=== PATIENT | male | born 1960 | race African-American/Black ===

== ENCOUNTER 2017-07-02 11:35 | Observation (INO) | payer OTHER, MEDICARE ==
--- NOTE | 2017-07-02 15:32 | ED ---
Psychiatric Complaint - HPI Summary HPI Summary: Pt sent here for hypertensive urgency and mental health evaluation. Sent by [facility]. He reports he's had HTN for "years" - takes lisinopril daily - was recently increased by [facility]. 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 He reports he has schizophrenia and received haldol 70mg IM monthly. He last received this at [facility] on 06/29/2017 (pt reports this and confirmed by nursing at [facility]). [facility] providers have been reluctant to rx this as he does not have a local psychiatrist - have all but begged him to consult [facility] which he declines. They have explained they will not provide this medication next time - needs to establish with MH in the community for psychiatry evaluation. He states he will go Sunday to [facility] for an initial intake. He is also speaking with quite quickly with pressured speech and jumps from topic to topic but they are somewhat linear. When asked about his HTN, he denies headache, blurred vision, chest pain, SOB, fatigue. He does have some swelling in his ankles but admits he's stressed more since here and not exercising like he usually does. Also eating poorly - more processed/canned foods than usual. He reports his BP has been 200's over 100's before many times in the past. He's not concerned. Further reports he was newly diagnosed with diabetes. No meds at this time. H/o increased urination last week and had labs with [facility] recently to dx DM. - History Of Current Complaint Chief Complaint: EDHypertension Time Seen by Provider: 07/02/17 13:55 Hx Obtained From: Patient - Allergies/Home Medications Allergies/Adverse Reactions: Allergies Allergy/AdvReac Type Severity Reaction Status Date / Time No Known Allergies Allergy Verified 07/02/17 11:44 Home Medications: Home Medications Aspirin [Aspirin 81 MG TAB] 81 mg PO DAILY 07/03/17 [History Confirmed 07/03/17] Benztropine TAB* [Cogentin TAB*] 1 mg PO BID 07/03/17 [History Confirmed ] Haloperidol Decanoate (Bulk) [Haloperidol Decanoate] 70 mg IM SEE INSTRUCTIONS 07/03/17 [History Confirmed 07/03/17] Lisinopril 10 mg PO DAILY 07/03/17 [History Confirmed 07/03/17] Multiple Vitamin [Multi Vitamin] 1 tab PO DAILY 07/03/17 [History Confirmed ] Omeprazole [Prilosec] 20 mg PO DAILY 07/03/17 [History Confirmed 07/03/17] PMH/Surg Hx/FS Hx/Imm Hx Previously Healthy: Yes Endocrine/Hematology History: Reports: Hx Diabetes - new dx Denies: Hx Anticoagulant Therapy, Hx Blood Disorders, Hx Thyroid Disease, Autoimmune Disease Cardiovascular History: Reports: Hx Hypertension - lisinopril - poorly controlled Denies: Hx Myocardial Infarction GI History: Reports: Hx Gastroesophageal Reflux Disease - 2ndry to chewing tobacco History: Denies: Hx Acute Renal Failure, Hx Chronic Renal Failure Infectious Disease History: No Infectious Disease History: Denies: Traveled Outside the [place] in Last 30 Days - Family History Known Family History: Positive: Other - CVA - sister, in 50's - Social History Occupation: Student - grad student [employer] Lives: Alone Alcohol Use: Occasionally Hx Substance Use: No Substance Use Type: Reports: None Hx Tobacco Use: Yes Smoking Status (MU): Never Smoked Tobacco Type: Smokeless Tobacco - quit years ago Review of Systems Constitutional: Negative Negative: Fever, Chills, Fatigue Eyes: Negative Negative: Photophobia, Blurred Vision, Diplopia ENT: Negative Negative: Dental Pain, Sore Throat Cardiovascular: Negative Negative: Palpitations, Chest Pain Respiratory: Negative Negative: Shortness Of Breath, Cough Gastrointestinal: Negative Negative: Abdominal Pain, Vomiting, Diarrhea, Nausea Positive: see HPI Musculoskeletal: Negative Skin: Negative Neurological: Negative Negative: Headache, Weakness, Paresthesia, Numbness, Syncope, Slurred Speech Psychological: Other - see HPI All Other Systems Reviewed And Are Negative: Yes Physical Exam Triage Information Reviewed: Yes Vital Signs On Initial Exam: Initial Vitals Temp Pulse Resp BP Pulse Ox 98.1 F 80 17 180/100 98 07/02/17 11:42 07/02/17 11:42 07/02/17 11:42 07/02/17 11:42 07/02/17 11:42 Vital Signs Reviewed: Yes Appearance: Positive: Well-Appearing, No Pain Distress, Well-Nourished Skin: Positive: Warm, Dry - multiple scabbed lesions over LE's - none appear acutely infected Head/Face: Positive: Normal Head/Face Inspection Eyes: Positive: Normal, EOMI, Conjunctiva Clear ENT: Positive: Hearing grossly normal Respiratory/Lung Sounds: Positive: Clear to Auscultation, Breath Sounds Present. Negative: Rales, Rhonchi, Wheezes Cardiovascular: Positive: RRR, Pulses are Symmetrical in both Upper and Lower Extremities, Leg Edema Left - +1 pitting in LLE - NTTP, Leg Edema Right, S1, S2. Negative: Murmur, Rub Abdomen Description: Positive: Nontender, Soft Bowel Sounds: Positive: Present Musculoskeletal: Positive: Normal, Strength/ROM Intact Neurological: Positive: Normal, Sensory/Motor Intact, Alert, Oriented to Person Place, Time, CN Intact II-III Psychiatric: Positive: Other - manic, somewhat unorganized thoughts, pleasant, calm and joking at times - denies SI/HI - [place] Coma Scale Coma Scale Total: 15 Diagnostics - Vital Signs Vital Signs Temp Pulse Resp BP Pulse Ox 07/02/17 11:42 98.1 F 80 17 180/100 98 - Laboratory Result Diagrams: 07/02/17 16:23 07/02/17 16:23 Lab Statement: Any lab studies that have been ordered have been reviewed, and results considered in the medical decision making process. Course/Dx - Course Course Of Treatment: Pt here intially via cab for unknown purpose - he reported to get DM meds. Nursing note said HTN. And CC said urinary frequency. Communication from [facility] indicated HTN urgency + request for MH evaluation for multiple disruptions on campus (not just today), odd behavior - confirmed by phone call. No clear explanation if pt is a danger to himself or others. [facility] reports sending pt over in a cab with instructions to be seen at ED. Pt presented as an educated adult with low level of sandra upon initial eval but after reviewing paperwork from [facility], it appeared he was underdosed w/ haldol. Also his BP was 180/100 and asx. Plan #1 was to bring him to therapeutic dose with haldol (from 50mg IM to 70mg by giving 20mg here today) and starting him on anti-hypertensive therapy to be followed by [facility] (they agreed to provide his continuity here). Pt declined BP meds. Labs returned and revealed elevated LFT's - pt reports fatty liver but unsure of LFT levels. [facility] called to update me that pt's haldol was in fact equivalent to 70mg so additional 20mg was not administered here. It was also decided he is most likely at is usual dose and not well controlled from a mental health standpoint. This could be from need for change in medcations and/or hypertensive urgency causing mood change (although BP not urgent at this time and pt reports he lives here or higher for years). Unfortunately, pt was moved out of his room for a more acutely ill pt and when finally moved back and vitals rechecked, his BP advanced to 182/123. He remained asx however explained he was now in a state of HTN urgency requiring medication to lower level to prevent damage to organs and prevent stroke, [place]. He was initally willing to stay for MH consult as it was discussed haldol may not be appropriate medication for mood and for his liver and after reviewing his BP now realized this could be exacerbation from HTN urgency. When explained this to pt, he states he doesn't care about his BP, wants to go home. No longer wants to stay for MH eval - will go to [facility] Sunday. He is concerned about getting in touch with his - offered him a phone to call which he declined. Concerned about studying for classes - explained he would have a medical excuse to address his abscence and the importance of tx and evaluation tonight. Explained he does not appear to be making sound decisions and denies SI/HI - suspect poor insight is a result of poorly controlled MH (no hallucinations but is manic and tangential) issues along w/ HTN. After further discussion by nursing, pt agrees to take PO B52 and receive hydralazine via IV as well as ECG which is NSR. He was offered food multiple times throughout the day but declined - he is now expressing he's hungry - food ordered. Discussed with Keith when BP became urgent state - advised meds and cardiac testing (trop, ECG). Pt has an elevated troponin 0.05 (no baseline for comparison). He also has NSR w/ LVH - report concerned for ST elevations but final read by Dr. Otero - no ST elevations. Pt takes ASA daily so was not ordered today. His pulse ox is above 95% consistently and pt is w/o pain so no oxygen ordered. Dr. Thomas advised involuntary admission - [facility] accepted pt. Spoke w/ SWATI Cabrera, pt to be evaluated once stable. No SI/HI nor reported auditory or visual hallucinations currently. - Differential Dx/Clinical Impression Provider Diagnosis: Hypertensive urgency, Sandra, Schizophrenia Discharge - Discharge Plan Condition: Stable Disposition: ADMITTED TO [facility]
[2017-07-02 16:56] LABS: ALT 64 U/L (7-52); AST 55 U/L (13-39); Albumin 4.2 g/dL (3.2-5.2); Alkaline Phosphatase 91 U/L (34-104); Anion Gap 7 mmol/L (2-11); BUN/Creatinine Ratio 7.8 (8-20); Blood Urea Nitrogen 8 mg/dL (6-24); CO2 Carbon Dioxide 29 mmol/L (22-32); Chloride 102 mmol/L (101-111); EGFR African American 97.9 (>60); EGFR Non-African American 76.1 (>60); Globulin 4.1 g/dL (2-4); Glucose 117 mg/dL (70-100); Potassium 3.8 mmol/L (3.5-5.0); Sodium 138 mmol/L (133-145); Total Protein 8.3 g/dL (6.4-8.9)
[2017-07-02 16:58] LABS: Benzodiazepine Urine Screen None Detected (None Detect)
[2017-07-02 17:05] LABS: Urine Bacteria Absent (Absent); Urine Bilirubin Negative (Negative); Urine Glucose Negative (Negative); Urine Nitrite Negative (Negative)
[2017-07-02 17:07] LABS: Acetaminophen < 15 mcg/mL; Alcohol < 10 mg/dL (<10); Salicylate < 2.50 mg/dL (<30)
[2017-07-02 17:08] LABS: Hematocrit 45 % (42-52); Hemoglobin 14.8 g/dl (14.0-18.0); Mean Corpuscular HGB Conc 33 g/dl (31-36); Mean Corpuscular Hemoglobin 30 pg (27-31); Mean Corpuscular Volume 90 fL (80-94); Mean Platelet Volume 8 um3 (7.4-10.4); Red Blood Count 4.93 10^6/ul (4.0-5.4); Red Cell Distribution Width 14 % (10.5-15); White Blood Count 5.3 10^3/ul (3.5-10.8)
[2017-07-02 17:17] LABS: TSH (Thyroid Stimulating Horm) 2.93 mcIU/mL (0.34-5.60)
[2017-07-02] MEDS ORDERED: hydrALAZINE IV* 20 MG/ML VIAL IV SLOW PU ONE (18:02)
[2017-07-02 18:30] LABS: Troponin I 0.05 ng/mL (<0.04)
[2017-07-02] MEDS ORDERED: Haloperidol TAB* 5 MG PO ONE (18:49)
[2017-07-02] MEDS ORDERED: diPHENhydraMINE PO* 50 MG PO ONE (18:49)
[2017-07-02] MEDS ORDERED: LORazepam TAB(*) 1 MG PO ONE (18:49)
--- NOTE | 2017-07-02 20:19 | ED ---
Progress - Progress Note Progress Note: At change of shift Dr Parker and Julieth Brandt had been managing this patient for several hours. At 1845 I was informed of the patient who was in a manic, schizophrenic state with very high BP and elevated troponin. Based on the clinical evidence of elevated BP, high troponin and the patient's psychiatric state of schizophrenia and sandra, the patient cannot be safely discharged to home, and He is not in a state to make medical decisions for himself. The hospitalists are admitting and Mental health is seeing as well for further treatment to be sure he is stable. At this time He will not be allowed to sign AMA due to the complex medical and psychiatric picture. Course/Dx - Course Course Of Treatment: Pt here intially via cab for unknown purpose - he reported to get DM meds. Nursing note said HTN. And CC said urinary frequency. Communication from [facility] indicated HTN urgency + request for MH evaluation for disruptions on campus, odd behavior - confirmed by phone call. Pt did present as low level of manic upon initial eval but after reviewing paperwork from [facility], it appeared he was underdosed w/ haldol. Also his BP was 180/100 and asx. Plan #1 was to bring him to therapeutic dose with haldol (from 50mg IM to 70mg by giving 20mg here today) and starting him on anti-hypertensive therapy to be followed by [facility] (they agreed to provide his continuity here). Labs returned and revealed elevated LFT's - pt reports fatty liver but unsure of LFT levels. [facility] called to update me that pt's haldol was in fact equivalent to 70mg so additional 20mg was not administered here. It was also decided he is most likely at is usual dose and not well controlled from a mental health standpoint. This could be from need for change in medcations and/ or hypertensive urgency causing mood change (although BP not urgent at this time ). Unfortunately, pt was moved out of his room for a more acutely ill pt and when finally moved back and vitals rechecked, his BP advanced to 182/123. He remained asx however explained he was now is a state of HTN urgency requiring medication to lower level to prevent damage to organs and prevent stroke, [place]. He was initally willing to stay for MH consult as it was discussed haldol may not be appropriate medication for mood and for his liver and after reviewing his BP now realized this could be exacerbation from HTN urgency. When explained this to pt, he states he doesn't care about his BP, wants to go home. No longer wants to stay for eval - will go to [facility] Sunday. He is concerned about getting in touch with his - offered him a phone to call which he declined. Concerned about studying for classes - explained he would have a medical excuse to address his abscence and the importance of tx and evaluation tonight. Explained he does not appear to be making sound decisions and denies SI/HI - suspect poor insight is a result of poorly controlled schizophrenia along w/ HTN. After further discussion by nursing, pt agrees to take PO B52 and receive hydralazine via IV as well as ECG which is NSR. He was offered food multiple times throughout the day but declined - he is now expressing he's hungry - food ordered. Discussed with Keith when BP became urgent state - advised meds and cardiac testing (trop, ECG). Pt has an elevated troponin 0.05 (no bsaeline for comparison). He also has NSR w/ LVH - report concerned for ST elevations but final read by Dr. Otero - no ST elevations. Pt takes ASA daily so was not ordered today. His pulse ox is abiove 95% consistently and pt is w/o pain so no oxygen ordered. Dr. Thomas advised admission - [facility] accepted pt. Spoke w/ Rick, SWATI, pt to be evaluated once stable. No SI/HI nor reported auditory or visual hallucinations currently. - Diagnoses Provider Diagnoses: Hypertensive urgency, Sandra, Schizophrenia
[2017-07-02] MEDS ORDERED: CMCS:Melatonin (NF) 3 MG TAB PO PRN (20:38)
[2017-07-02] MEDS ORDERED: Acetaminophen TAB* 325 MG PO PRN (20:38)
[2017-07-02] MEDS ORDERED: Morphine INJ* 2 MG/ML 1 ML SYRINGE (TWO MG - NEW SYRINGE VERSION) IV PRN (20:38)
[2017-07-02] MEDS ORDERED: Aspirin Low Dose CHEW TAB* 81 MG PO ONE (20:39)
[2017-07-02] MEDS ORDERED: Ondansetron INJ* 2 MG/ML VIAL IV PRN (20:39)
[2017-07-02] MEDS ORDERED: Haloperidol INJ IV/IM* 5 MG/ML AMP ONE (20:56)
[2017-07-02] MEDS ORDERED: Haloperidol INJ IV/IM* 5 MG/ML AMP IM ONE (20:57)
[2017-07-02] MEDS ORDERED: Ziprasidone IM INJ* 20 MG/ML VIAL IM ONE (21:02)
[2017-07-02] MEDS ORDERED: Ziprasidone IM INJ* 20 MG/ML VIAL ONE (21:03)
[2017-07-02] MEDS ORDERED: Sterile Water for Inj* 10 ML ONE (21:05)
--- NOTE | 2017-07-02 21:15 | HP ---
H&P (Free Text) History and Physical: PCP: [facility] Date/Time: 07/02/2017 CC: [id number] for schizophrenia exacerbation HPI: Mr Palacios is a 56YO male HX HTN, DM2, & paranoid schizophrenia who lives with his in [place], but came to [place] in May for 2 semesters of graduate work at [employer]. He was sent in by [facility] reportedly for uncontrolled HTN & new diagnosis of DM2, but ED charge nurse reports he was brought in 941 for manic behavior and has been determined to lack capacity. He has required 5mg haloperidol, 2mg lorazepam, & 50mg diphenhydramine in ED for agitation, but is currently awake, alert, and stating he does not want to stay. This is despite my informing him that his blood pressure has been high enough to create a small bump in his troponin, possibly indicating heart damage or potential ACS. He does not accept this stating, "I'm fine. I just want to go." He denies chest pain, SOB, palpitation, nausea, sweats, and light-headedness. He has had no cough, congestion, F/C, diarrhea, focal W/N/T, change in speech/ swallow or other issues. PMedHx paranoid schizophrenia DM2 HTN Medications Nursing to reconcile. Allergies No Known Allergies Allergy (Verified 07/02/17 11:44) PSurgHx denies SocHx: former light chew but none now, 1 alcoholic drink daily, denies recreational drugs; lives with his in [place] but is staying in [place] alone for a year starting in May for graduate work at [employer]; full code status FamHx: Mother passed in her 70s of "old age". Father passed of an uncertain cancer. Sister passed of a CVA. ROS: as above, otherwise reviewed and all were negative vitals: Vital Signs Temp 36.6 C 07/02/17 18:35 Pulse 78 07/02/17 19:15 Resp 18 07/02/17 18:58 BP 185/101 07/02/17 19:15 Pulse Ox 97 07/02/17 19:15 Intake & Output 07/01/17 07/02/17 07/02/17 23:59 11:59 23:59 Weight 121.109 kg Constitutional: NAD, normally developed, obese black male HEENM: atraumatic; sclera/conjunctiva: non-icteric/clear; hearing: clinically intact; oropharynx: clear, mucosa moist Neck: soft tissue: non-tender; thyroid: normal Pulmonary: clear to auscultation bilaterally, good aeration, no accessory muscle use CV: RR/RR, normal S1S2, no carotid bruit, no jugular venous distention, 2+ B DP/ PT, no edema Abdominal: soft, non-distended, non-tender, no rebound/guarding/rigidity, normoactive bowel sounds, no hepatosplenomegaly or masses, no costovertebral angle tenderness Musculoskeletal: general: grossly intact; gait: stable Integumental: normal appearance and texture of exposed skin Psychiatric orientation: AA&O to PPS affect: mildly anxious mood: cooperative eye contact: fair content: reliable responses: timely, tangential, perseverant regarding not staying insight: fair to poor Testing: Lab Results 07/02/17 07/02/17 07/02/17 Range/Units 16:10 16:10 16:23 WBC (3.5-10.8) 10^3/ul RBC (4.0-5.4) 10^6/ul Hgb (14.0-18.0) g/dl Hct (42-52) % MCV (80-94) fL MCH (27-31) pg MCHC (31-36) g/dl RDW (10.5-15) % Plt Count (150-450) 10^3/ul MPV (7.4-10.4) um3 Neut % (Auto) (38-83) % Lymph % (Auto) (25-47) % Swisher % (Auto) (1-9) % Eos % (Auto) (0-6) % Baso % (Auto) (0-2) % Absolute Neuts (auto) (1.5-7.7) 10^3/ul Absolute Lymphs (auto) (1.0-4.8) 10^3/ul Absolute Monos (auto) (0-0.8) 10^3/ul Absolute Eos (auto) (0-0.6) 10^3/ul Absolute Basos (auto) (0-0.2) 10^3/ul Absolute Nucleated RBC 10^3/ul Nucleated RBC % Sodium 138 (133-145) mmol/L Potassium 3.8 (3.5-5.0) mmol/L Chloride 102 (101-111) mmol/L Carbon Dioxide 29 (22-32) mmol/L Anion Gap 7 (2-11) mmol/L BUN 8 (6-24) mg/dL Creatinine 1.02 (0.67-1.17) mg/dL Est GFR ( Amer) 97.9 (>60) Est GFR (Non-Af Amer) 76.1 (>60) BUN/Creatinine Ratio 7.8 L (8-20) Glucose 117 H (70-100) mg/dL Calcium 10.0 (8.6-10.3) mg/dL Total Bilirubin 0.90 (0.2-1.0) mg/dL AST 55 H (13-39) U/L ALT 64 H (7-52) U/L Alkaline Phosphatase 91 (34-104) U/L Troponin I 0.05 H* (<0.04) ng/mL Total Protein 8.3 (6.4-8.9) g/dL Albumin 4.2 (3.2-5.2) g/dL Globulin 4.1 H (2-4) g/dL Albumin/Globulin Ratio 1.0 (1-3) TSH 2.93 (0.34-5.60) mcIU/mL Urine Color Yellow Urine Appearance Clear Urine pH 6.0 (5-9) Ur Specific Citra 1.023 (1.010-1.030) Urine Protein 2+(100 mg/dl) H (Negative) Urine Ketones Negative (Negative) Urine Blood Negative (Negative) Urine Nitrate Negative (Negative) Urine Bilirubin Negative (Negative) Urine Urobilinogen Negative (Negative) Ur Leukocyte Esterase Negative (Negative) Urine WBC (Auto) Absent (Absent) Urine RBC (Auto) Absent (Absent) Urine Bacteria Absent (Absent) Urine Glucose Negative (Negative) Urine Ascorbic Acid * H (Negative) Salicylates < 2.50 (<30) mg/dL Urine Opiates Screen None detected (None Detect) Acetaminophen < 15 mcg/mL Ur Barbiturates Screen None detected (None Detect) Ur Phencyclidine Scrn None detected (None Detect) Ur Amphetamines Screen None detected (None Detect) U Benzodiazepines Scrn None detected (None Detect) Urine Cocaine Screen None detected (None Detect) U Cannabinoids Screen None detected (None Detect) Serum Alcohol < 10 (<10) mg/dL 07/02/17 07/02/17 Range/Units 16:23 19:05 WBC 5.3 (3.5-10.8) 10^3/ul RBC 4.93 (4.0-5.4) 10^6/ul Hgb 14.8 (14.0-18.0) g/dl Hct 45 (42-52) % MCV 90 (80-94) fL MCH 30 (27-31) pg MCHC 33 (31-36) g/dl RDW 14 (10.5-15) % Plt Count 189 (150-450) 10^3/ul MPV 8 (7.4-10.4) um3 Neut % (Auto) 42.6 (38-83) % Lymph % (Auto) 47.0 (25-47) % Swisher % (Auto) 8.0 (1-9) % Eos % (Auto) 1.8 (0-6) % Baso % (Auto) 0.6 (0-2) % Absolute Neuts (auto) 2.3 (1.5-7.7) 10^3/ul Absolute Lymphs (auto) 2.5 (1.0-4.8) 10^3/ul Absolute Monos (auto) 0.4 (0-0.8) 10^3/ul Absolute Eos (auto) 0.1 (0-0.6) 10^3/ul Absolute Basos (auto) 0 (0-0.2) 10^3/ul Absolute Nucleated RBC 0.03 10^3/ul Nucleated RBC % 0.6 Sodium (133-145) mmol/L Potassium (3.5-5.0) mmol/L Chloride (101-111) mmol/L Carbon Dioxide (22-32) mmol/L Anion Gap (2-11) mmol/L BUN (6-24) mg/dL Creatinine (0.67-1.17) mg/dL Est GFR ( Amer) (>60) Est GFR (Non-Af Amer) (>60) BUN/Creatinine Ratio (8-20) Glucose (70-100) mg/dL Calcium (8.6-10.3) mg/dL Total Bilirubin (0.2-1.0) mg/dL AST (13-39) U/L ALT (7-52) U/L Alkaline Phosphatase (34-104) U/L Troponin I 0.05 H* (<0.04) ng/mL Total Protein (6.4-8.9) g/dL Albumin (3.2-5.2) g/dL Globulin (2-4) g/dL Albumin/Globulin Ratio (1-3) TSH (0.34-5.60) mcIU/mL Urine Color Urine Appearance Urine pH (5-9) Ur Specific Citra (1.010-1.030) Urine Protein (Negative) Urine Ketones (Negative) Urine Blood (Negative) Urine Nitrate (Negative) Urine Bilirubin (Negative) Urine Urobilinogen (Negative) Ur Leukocyte Esterase (Negative) Urine WBC (Auto) (Absent) Urine RBC (Auto) (Absent) Urine Bacteria (Absent) Urine Glucose (Negative) Urine Ascorbic Acid (Negative) Salicylates (<30) mg/dL Urine Opiates Screen (None Detect) Acetaminophen mcg/mL Ur Barbiturates Screen (None Detect) Ur Phencyclidine Scrn (None Detect) Ur Amphetamines Screen (None Detect) U Benzodiazepines Scrn (None Detect) Urine Cocaine Screen (None Detect) U Cannabinoids Screen (None Detect) Serum Alcohol (<10) mg/dL ECG, personally reviewed: NSR rate 78, no ischemia, upward concave J-point elevation V1-3, non-specific ST-T abnormality V4-5; no comparison Impression: 56M HX DM2, HTN, & paranoid schizophrenia presents manic with systolic >200 & troponin of 0.05 DIAGNOSIS & PLAN Primary hypertensive urgency : telemetry : trend troponin : recheck ECG in AM : aspirin : start metoprolol 25mg PO BID : supplemental oxygen : monitor & titrate anti-hypertensives : consider cardiac stress testing once psychiatric issues stabilized : supportive care paranoid schizophrenia, agitated, uncontrolled : already given 5mg haloperidol, 2mg lorazepam, & 50mg diphenhydramine; still pacing & agitated : 20mg IM ziprazidone ordered, security currently in room, police en route : will need psychiatry consult once medically clear : obtain records from [facility] Secondary DM2 : consistent carb diet : ACHS glucometry : check A1c : correctional insulin Admission Rational: CDU observation for hypertensive urgency DVTp: SCDs Code Status: full HCP: , Mari Rooney [phone]
[2017-07-02] MEDS ORDERED: LORazepam INJ* 2 MG/ML 1 ML VIAL IV PRN (23:02)
[2017-07-02] MEDS ORDERED: hydrALAZINE IV* 20 MG/ML VIAL IV PRN (23:03)
[2017-07-02] MEDS: Metoprolol Tartrate TAB* 25 MG PO SCH (23:03)
[2017-07-03] MEDS ORDERED: LORazepam INJ* 2 MG/ML 1 ML VIAL IV ONE (04:05)
[2017-07-03] MEDS: Omeprazole CAP* 20 MG PO SCH ×2 (05:33→08:56)
[2017-07-03] MEDS: Metoprolol Tartrate TAB* 25 MG PO SCH (08:55)
[2017-07-03] MEDS: Insulin LISPRO* 1 UNITS UNIT SUBCUT SCH ×2 (08:59→12:10)
[2017-07-03] MEDS ORDERED: Aspirin EC Low Dose* 81 MG TAB.EC PO SCH (09:00)
[2017-07-03] MEDS ORDERED: LORazepam INJ* 2 MG/ML 1 ML VIAL IV PUSH PRN (09:34)
[2017-07-03] MEDS ORDERED: Haloperidol INJ IV/IM* 5 MG/ML AMP IV SLOW PU PRN (09:34)
[2017-07-03] MEDS ORDERED: Benztropine TAB* 2 MG PO SCH (10:00)
[2017-07-03] MEDS ORDERED: Lisinopril TAB* 10 MG PO SCH (10:00)
--- NOTE | 2017-07-03 12:56 | ECHO ---
Patient: FIDEL MOLINA Rec#: [id number] : 1960 Date: 07/03/2017 Age: 56y Height: 188 cm / 74.0 in Weight: 121 kg / 266.7 lbs Sex: M BSA: 2.46 Room#: 436 Admit Date#: 07/02/2017 Type: Inpatient Referring: Gio Nails MD Reading: Arley Dalton MD Improvement Nurse: Alisha Grossman RN RDCS Transthoracic Echocardiogram Indication: Hypertensive urgency, elevated troponin levels BP: 147/89 HR: 71 Rhythm: NSR Findings History: HTN, HLD, DM, GERD, smoker Technical Comments: The study quality is fair. The study is technically limited due to patient body habitus. The study is technically limited due to the patient's smoking history. Completed at 1220. Left Ventricle: The left ventricular chamber size is normal. Mild to moderate concentric left ventricular hypertrophy is observed.M mode mesurements may be skewed due to off axis view. Global left ventricular wall motion and contractility are within normal limits. There is normal left ventricular systolic function. The estimated ejection fraction is 55-60%. Abnormal left ventricular diastolic filling is observed, consistent with impaired relaxation. Left Atrium: The left atrium is moderately dilated. Right Ventricle: The right ventricular cavity size is normal. The right ventricular global systolic function is normal. Right Atrium: The right atrium is mildly dilated. Aortic Valve: The aortic valve is trileaflet. The aortic valve leaflets are mildly thickened. There is a trace of aortic regurgitation. There is no evidence of aortic stenosis. Mitral Valve: The mitral valve leaflets are mildly thickened. There is mild mitral regurgitation. There is no evidence of mitral stenosis. Tricuspid Valve: The tricuspid valve leaflets are normal. There is trace tricuspid regurgitation. Unable to estimate the right ventricular systolic pressure. Pulmonic Valve: The pulmonic valve appears normal. There is trace to mild pulmonic regurgitation. There is no pulmonic stenosis. Pericardium: There is no significant pericardial effusion. A pericardial fat pad is visualized. Aorta: There is no dilatation of the ascending aorta. There is no dilatation of the aortic arch. There is no dilation of the aortic root. Pulmonary Artery: The main pulmonary artery appears normal. Venous: The inferior vena cava appears normal in size. There is a greater than 50% respiratory change in the inferior vena cava dimension. Conclusions Mild to moderate concentric left ventricular hypertrophy is observed. There is normal left ventricular systolic function. The estimated ejection fraction is 55-60%. Abnormal left ventricular diastolic filling is observed, consistent with impaired relaxation. The left atrium is moderately dilated. No significant valvular disease: There is a trace of aortic regurgitation. There is mild mitral regurgitation. There is trace tricuspid regurgitation. There is trace to mild pulmonic regurgitation. No reports of prior studies offered for comparison. Measurements Name Value Normal Range RVDdMajor (2D) 4.1 cm (2.2 - 4.4) RAd ISD 4CH 4.6 cm (3.4 - 4.9) RA (A4C)W 4.9 cm (2.9 - 4.6) IVSd (2D) 1.6 cm (0.6 - 1) LVPWd (2D) 1.6 cm (0.6 - 1) LVIDd (2D) 5 cm (3.6 - 5.4) LVIDs (2D) 3.4 cm - LV FS (2D) 32 % (25 - 45) Aortic Annulus 2.6 cm (1.4 - 2.6) Ao root diameter (2D) 3.3 cm (2.1 - 3.5) Ascending Ao 3.1 cm (2.1 - 3.4) Aortic arch 2.7 cm (1.8 - 3.4) LA dimension (AP) 2D 4.9 cm (2.3 - 3.8) LAd ISD 4CH 6.6 cm (2.9 - 5.3) LA ISD 4CH W 5.5 cm (2.5 - 4.5) Name Value Normal Range LA ESV SP 4CH (A/L) 114 ml - LA ESV SP 2CH (A/L) 82 ml - LA ESV BP (A/L) 101 ml - LA ESV BP (A/L) index 41.2 ml/m2 - LA ESV SP 4CH (MOD) 104 ml - LA ESV SP 2CH (MOD) 79 ml - Name Value Normal Range MV E-wave Vmax 0.46 m/sec - MV deceleration time 387 msec - MV A-wave Vmax 0.64 m/sec - MV E:A ratio 0.7 ratio - LV septal e' Vmax 0.05 m/sec - LV lateral e' Vmax 0.07 m/sec - LV E:e' septal ratio 9.2 ratio - LV E:e' lateral ratio 6.6 ratio - Name Value Normal Range AV Vmax 1.3 m/sec - AV VTI 26.1 cm - AV peak gradient 6.7 mmHg - AV mean gradient 1.2 mmHg - LVOT Vmax 0.88 m/sec - LVOT VTI 18.9 cm - LVOT peak gradient 3.1 mmHg - LVOT mean gradient 1.7 mmHg - DAYNE Vmax 0.8 m/sec - Name Value Normal Range IVC diameter 1.5 cm - Name Value Normal Range PV Vmax 1.3 m/sec -
[2017-07-03] MEDS ORDERED: Influenza VAC *QUAD* 2017-18* 0.5 ML SYRINGE IM ONE (13:00)
[2017-07-03] MEDS ORDERED: hydrOXYzine HCL TAB* 25 MG PO PRN (13:05)
[2017-07-03 13:20] VITALS: BP 157/104
--- NOTE | 2017-07-03 16:43 | CONS ---
PSYCHIATRIC CONSULTATION NOTE: DATE OF CONSULT: 07/02/17 ATTENDING CLINICIAN: JESUS Stone CONSULTING PSYCHIATRIST: Delmar Chance MD REASON FOR CONSULT: Agitation. SUBJECTIVE HISTORY: Mr. Palacios is a 56-year-old -[place]ian male with a documented h istory of paranoid schizophrenia as well as hypertension and diabetes mellitus, who resides with his in [place], [place], but has come to [place] to pursue 2 semesters of graduate work here at [employer] and was sent in on a 9.57 legal status from the [facility] secondary to elevat ed blood pressure as well as agitated tangential behavior. My understanding is that the 9.57 paperw ork was signed by a physician named Mercedes Cano. She noted that she was extremely concerned by his grossly elevated blood pressure, but also due to his tangentiality and loud over-productive spee ch. The patient has been trying to receive his scheduled monthly haloperidol shot, but initially th ey did not feel that they could accommodate this. He does indicate that he has been trying to get i nto an intake appointment at the [facility] and is very much willing to do this. The patient's story is that he was uncertain about the necessity of hospitalization and want ed to leave. My understanding is that he did require stat medication with haloperidol, lorazepam, a nd diphenhydramine in the ED due to combative behavior and insisting to leave, but ultimately he was agreeable to hospitalization on 4th floor telemetry unit. He was discovered to have elevated tropo nins and there is concern that his elevated blood pressure has caused undue stress on his heart and this is being worked up on an inpatient basis. Psychiatry is asked to evaluate whether or not he is psychiatrically safe. On exam, he is quite loud and hyperverbal, but mostly good natured, cracking jokes. 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 The patient denies suicidal or homicidal ideations and he does seem to be aware that he o verreacted in the emergency room. He does give me the telephone number for his , Mercedes Gonzalez in, and she corroborates much of his history, in particular she confirms that he has no formal histo ry of violence towards himself or others. She has been concerned that he did not get his Haldol trish t until Sunday of last week and that she could tell he was starting to speed up and get slightly man ic. She says this is a typical presentation for him when he does not sleep very much, which he admi ts to telling me that he has been studying long nights in the library with other graduate students. At any rate, the patient declines the need for psychiatric hospitalization at this point and his wi fe does not feel that this would be helpful for him. He is very much interested; however, in receiv ing formal outpatient management at [facility]. PAST PSYCHIATRIC HISTORY: The patient was hospitalized in 1990 for a psychotic break. He states th at his diagnosis is paranoid schizophrenia, although his admits that she has always suspected t hat he is bipolar given his mood instability. At any rate, he has been treated for over 25 years wit h injectable Haldol at the dose of 75 mg once monthly, most recent injection delivered on 06/29/17. I was able to confirm this prescription through the [facility] in [place], [place]. The patie nt has no history of harm to others or suicidality. PAST MEDICAL HISTORY: Significant for: 1. Diabetes mellitus. 2. Hypertension. CURRENT MEDICATIONS: Gathered from his pharmacy, they include: 1. Benztropine 2 mg p.o. b.i.d. 2. Omeprazole 20 mg p.o. daily. 3. Lisinopril 20 mg p.o. daily. 4. Haldol 75 mg q.2 weeks. 5. Hydroxyzine 25 mg 4 times a day as a p.r.n. for anxiety. FAMILY HISTORY: Negative for mental illness. SOCIAL HISTORY: The patient was born [place] near [place], [place]. He is the 13th of 14 children. His father was a [place] [employer]st and he [facility]. He never served in the due to his family status as conscientious objectors. He got an undergraduate degree at [employer] and has traveled to multiple countries studying [employer], which he is currently studying at [employer] having just started his program in May 2017. Jeffrey leal is currently to his first . They have no children together, although he has a stepdau ghter from his 's previous relationship. 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 The patient has no formal leg al history. SUBSTANCE ABUSE HISTORY: The patient states that he tried marijuana several times while in undergra duate school, but declines any recent use of this or any other illicit substances. He states that f or a time he used to dip smokeless tobacco, but has not done this in over 15 years and he drinks minerva roximately 1 alcoholic beverage per day. MENTAL STATUS EXAM: The patient is an extremely large, tall, muscular - Georgian male wearin g a [employer]wick Varela tractor cap with a red Billy T-shirt. He is wearing shorts and he has knee bands o n around his knees. He is calm and cooperative, easy to establish a rapport with. Speech is over p roductive, loud and hyperverbal with elevated rate of speech. Mood appears to be hypomanic with exp ansive affect. Thought process is tangential. Thought content is significant for his desire to colby ve the hospital and return to study for his upcoming graduate exams. He denies suicidal or homicida l ideations. He denies any auditory or visual hallucinations. Insight and judgement appears to be fair given his willingness to follow up with outpatient mental health treatment. Cognitively, he is awake, and alert. DIAGNOSES: [place] I: Bipolar disorder, most recent episode hypomanic. [place] II: Deferred. ASSESSMENT: The patient is a 56-year-old male with a documented history of paranoid schizophrenia, who went several weeks without his monthly haloperidol injection prior to [facility] receiving this on 06/29/17, who presents on a 9.57, signed by the [facility] due to hypertension and tangential thought process. At this time, the patient does not appear to be a danger to himself or others. He is hypomanic, but is willing to receive treatment for this at [facility]. He has no formal history of harm to himself or others and h is is in support of him being discharged from a psychiatric standpoint. RECOMMENDATIONS TO PRIMARY TEAM: I recommend that social work be involved so that the patient may r eceive followup appointment at the [facility]. The patient's Ronaldentin 2 m g p.o. b.i.d. can be resumed as can his hydroxyzine 25 mg 4 times a day on a p.r.n. basis. I will g o ahead and write orders for these. Psychiatry will continue to follow up with the patient as long as he is admitted, but we see no psychiatric justification for involuntary mental health treatment a t this time. [id number]/[facility] #: [id number]
[2017-07-03] MEDS ORDERED: Atorvastatin* 40 MG TAB PO SCH (17:00)
--- NOTE | 2017-07-04 05:02 | DS ---
CC: Mercedes Cano DO; Dr. Merlin Otero* DISCHARGE SUMMARY: DATE OF ADMISSION: 07/02/17 DATE OF DISCHARGE: 07/03/17 PRIMARY CARE DOCTOR: Mercedes Cano DO, [facility]. ATTENDING PHYSICIAN WHILE IN THE HOSPITAL: Dr. Merlin Otero* (dictated by JESUS Lemons). CONSULTING PHYSICIAN: Dr. Delmar Chance, Psychiatry. PRIMARY DISCHARGE DIAGNOSES: 1. Hypertensive urgency. 2. Bipolar disorder, type 1, hypomanic episode, most recent. SECONDARY DISCHARGE DIAGNOSIS: Newly diagnosed diabetes mellitus type 2. CURRENT MEDICATIONS: 1. Benztropine 1 mg p.o. twice daily. 2. Multivitamin 1 tab oral daily. 3. Lisinopril 20 mg oral daily. 4. Aspirin 81 mg p.o. daily. 5. Omeprazole 20 mg p.o. daily. 6. Haloperidol decanoate 70 mg IM every 4 weeks. NEW MEDICATIONS ON DISCHARGE: 1. Lipitor 40 mg p.o. daily. 2. Metoprolol succinate 50 mg p.o. daily. STUDIES DONE WHILE IN THE HOSPITAL: 1. Electrocardiogram on admission showed J-point elevation, concave in V2 and V3, multiple hypertensive voltage criteria met, showing left ventricular hypertrophy, left atrial dilation, normal axis, no other abnormalities. Repeat in the morning showed no significant change. 2. Transthoracic echocardiogram showed mild to moderate concentric left ventricular hypertrophy, ejection fraction 55% to 60%, diastolic dysfunction with impaired relaxation. No other significant findings. HOSPITAL COURSE: For full details, please refer to the H and P from Dr. oDtson on 07/02/17. In summary, Mr. Palacios is a 56-year-old male with past medical history significant for hypertension, newly diagnosed diabetes mellitus type 2, and diagnosis of paranoid schizophrenia who presented to the ER from [place] with blood pressure readings of approximately 200/100. The patient was talking tangentially and seemed paranoid at this time. The patient was told he should be admitted. At this time, the patient became aggressive with staff and started perseverating and wanting to leave at which point, the security and the police were called and patient was put on a 9.57 hold. The patient was given Haldol, Ativan and Benadryl for agitation in the emergency department. The patient agreed to be admitted, but continued to be agitated and was given Geodon and Ativan overnight. The patient calmed down considerably in the morning and agreed to allow EKG and echocardiogram. The patient was seen by Dr. Chance, who believed that the patient was not danger to himself or others and that he would able to be treated in the outpatient setting. Dr. Chance stated he believes the patient was hypomanic and had bipolar disorder as opposed to his current diagnosis of paranoid schizophrenia. The patient was normotensive on his lisinopril 20 mg p.o. daily from home and metoprolol tartrate 25 mg p.o. b.i.d. The patient was found to be hyperlipidemic at [facility] and agreed to statin therapy. Patient was recently diagnosed with Diabetes Mellitus Type II but his glucose readings were only slightly elevated in the hospital and this was deemed to be more properly addressed outpatient. The patient most recently received his Haldol depot injection on 06/29/17, which was confirmed by his pharmacy. The patient was accepted to be a patient at [facility] and is going to go there after discharge. PHYSICAL EXAMINATION ON DAY OF DISCHARGE: General: The patient is a 56-year- old male who appears stated age, sitting on the hospital bed, in no acute distress. Vitals Signs: Temperature 97.8, pulse rate 71, respiratory rate 20, oxygen saturation 96% on room air, blood pressure 157/104. HEENT: Head normocephalic, atraumatic. Eyes, sclerae anicteric. No conjunctival injection. Pharynx nonerythematous. Mucous membranes are moist. Neck: Supple , nontender. No carotid bruit auscultated. Cardiac: Regular rate and rhythm without clicks, murmurs, gallops, or rubs. Pulses 2+ in the bilateral radial posterior tibialis and dorsalis pedis areas. No edema. Respiratory: Clear to auscultation bilaterally. No wheezes, rales or rhonchi. Good air exchange bilaterally. Abdomen: Nondistended, nontender. Bowel sounds present in all 4 quadrants. No abdominal bruits auscultated. No hepatosplenomegaly. Genitourinary: No suprapubic or CVA tenderness. Neuro: The patient alert and oriented x3. Normal gait. Cranial nerves II through XII grossly intact. Skin : Clean, dry, intact. No diaphoresis. Psychiatric: The patient is cooperative and euthymic at this time. The patient speaks non-tangentially and will answer all questions satisfactorily. DISCHARGE PLAN: The patient will be discharged at this time to follow up with his primary care doctor at [facility]. With regards to his hypertension, hyperlipidemia and his new onset of diabetes mellitus, the patient had only mildly elevated glucoses while in the hospital. The patient will follow up today with [facility] for care of his newly diagnosed bipolar disorder. The patient to return to the hospital for chest pain, shortness of breath, increased swelling in his legs, or suicidal or homicidal ideation. TIME SPENT: Approximately 60 minutes were spent on this discharge, 30 of which was spent face to face with the patient obtaining history and physical and discussing the clinical conditions and treatment options. This plan was discussed with my attending, Dr. Merlin Otero, and he is in agreement. JESUS LEMONS [id number]/[facility] #: [id number] JIAN
== END 2017-07-03 14:40 | disposition home or self-care (01) ==
LOC: ED 11:35 → MEDTELE 20:36
PROVIDERS: ADMIT Hospitalist; ATTEND Internal Medicine
DX: I16.0 Hypertensive urgency (principal); F31.0 Bipolar disorder, current episode hypomanic; R45.1 Restlessness and agitation; E78.5 Hyperlipidemia, unspecified; R74.8 Abnormal levels of other serum enzymes; I51.7 Cardiomegaly; I34.0 Nonrheumatic mitral (valve) insufficiency; I37.1 Nonrheumatic pulmonary valve insufficiency; E13.9 Other specified diabetes mellitus without complications; Z79.899 Other long term (current) drug therapy; Z23 Encounter for immunization
CPT/HCPCS: 36415; 80053; 80307; 80320; 80329; 81003; 81015; 84443; 84484; 85025; 90686; 93005; 93306; 96374; 99285; A9270-GY; G0378; G0480; J0360; J1630; J2060; J3486